=== PATIENT | male | born 1965 | race Caucasian/White ===

== ENCOUNTER 2018-06-13 22:59 | Emergency (ER) | payer MEDICAID | END 2018-06-14 02:25 | disposition home or self-care (01) | LOC: FTE 22:59 | DX: S61.230A Puncture wound without foreign body of right index finger without damage to nail, initial encounter (principal); R40.2412 Glasgow coma scale score 13-15, at arrival to emergency department; I25.2 Old myocardial infarction; E11.9 Type 2 diabetes mellitus without complications; W45.8XXA Other foreign body or object entering through skin, initial encounter; Y92.9 Unspecified place or not applicable; Z79.82 Long term (current) use of aspirin; Z87.891 Personal history of nicotine dependence; Z98.61 Coronary angioplasty status; Z95.1 Presence of aortocoronary bypass graft | CPT/HCPCS: 99283; Z7502 ==

== ENCOUNTER 2018-06-17 10:57 | Emergency (ER) | payer MEDICAID ==
[2018-06-17] MEDS: TETRACAINE 0.5% 4 ML OPH BOTH EYES (11:34)
[2018-06-17] MEDS: FLUORESCEIN STRIP BOTH EYES (11:34)
== END 2018-06-17 12:51 | disposition home or self-care (01) ==
LOC: FTE 10:57
DX: S05.01XA Injury of conjunctiva and corneal abrasion without foreign body, right eye, initial encounter (principal); I25.2 Old myocardial infarction; E11.9 Type 2 diabetes mellitus without complications; F17.210 Nicotine dependence, cigarettes, uncomplicated; I10 Essential (primary) hypertension; X58.XXXA Exposure to other specified factors, initial encounter; Y92.9 Unspecified place or not applicable; Z98.61 Coronary angioplasty status; Z79.82 Long term (current) use of aspirin; Z79.01 Long term (current) use of anticoagulants; Z79.84 Long term (current) use of oral hypoglycemic drugs
CPT/HCPCS: 99283; Z7502